=== PATIENT | male | born 1950 | race Caucasian/White ===

== ENCOUNTER 2017-03-11 03:10 | Emergency (ER) | payer MEDICARE, OTHER ==
[~2017-03-11] VITALS: Ht 185.4 cm; Wt 81.7 kg
[~2017-03-11 03:10] MED LIST: ASPI325 PO; BENTYL20 MG PO; CARV6.25 PO; CELEXA 40 MG PO; CITA20 PO; ENTRESTO 24 MG1 EACH PO; FURO20 PO; HYOS.125 SL; LEVFLO500 PO; LISI5 PO; Lasix40 MG PO; NYST100P TOP; Norco 10-325 T1 EACH PO; PROM25 PO; Percocet 5-3251 EACH PO; RXPROM25 PO; SPIR50 PO; SULTRIDS PO; WARF2.5 PO; Zofran Odt4 MG SL; Zofran4 MG PO
[2017-03-11] MEDS ORDERED: Lisinopril2.5 MG (04:30)
== END 2017-03-11 05:12 | disposition short-term general hospital (02) ==
LOC: ER 03:10
DX: N20.1 Calculus of ureter (principal); Z79.899 Other long term (current) drug therapy; Z79.01 Long term (current) use of anticoagulants; I48.91 Unspecified atrial fibrillation
CPT/HCPCS: 36415; 74176; 96374; 96375; 99285; J1885; J2405

== ENCOUNTER 2019-10-16 10:10 | Observation (INO) | payer MEDICARE, OTHER ==
[~2019-10-16] VITALS: Ht 185.4 cm; Wt 82.0 kg
[~2019-10-16 10:10] MED LIST changes: +HYDR1TAB94 PO; +LISI5
[2019-10-16 10:52] LABS: BASOPHILS ABSOLUTE AUTO 0.07 K/mm3 (0.00-0.23); BASOPHILS PERCENT AUTO 1 % (0-2); EOSINOPHILS PERCENT AUTO 4 % (0-6); Hemoglobin 11.6 g/dL (13.5-17.5); IMMATURE GRAN ABSOLUTE AUTO 0.03 K/mm3 (0.00-0.10); IMMATURE GRAN PERCENT AUTO 0 % (0-1); LYMPHOCYTES ABSOLUTE AUTO 1.65 K/mm3 (0.84-5.20); LYMPHOCYTES PERCENT AUTO 19 % (21-46); MONOCYTES PERCENT AUTO 10 % (4-13); Mean Corpuscular HGB 28.9 pg (26.0-34.0); Mean Corpuscular HGB Conc 32.2 g/dL (31.5-36.5); Mean Corpuscular Volume 90 fL (80-100); Mean Platelet Volume 10.5 fL (9.1-12.4); NEUTROPHILS ABSOLUTE AUTO 5.71 K/mm3 (1.96-9.15); NEUTROPHILS PERCENT AUTO 66 % (41-73); Platelet Count 269 K/mm3 (150-400); RDW Coefficient Variation 14.1 % (11.7-14.2); RDW Standard Deviation 46.9 fL (35.1-46.3); Red Blood Cell Count 4.01 M/mm3 (4.30-5.90); White Blood Cell Count 8.66 K/mm3 (4.00-11.30)
[2019-10-16] MEDS ORDERED: Klor-Con 1010 MEQ PO (11:20)
[2019-10-16 11:23] LABS: International Normalized Ratio No Calc
[2019-10-16 11:24] LABS: Prothrombin Time Results >90.0 Sec (9.7-11.5)
[2019-10-16 12:08] LABS: Alanine Aminotransfer (ALT/SGP 26 U/L (12-78); Albumin, Blood 3.6 g/dL (3.4-5.0); Albumin/Globulin Ratio 0.9 (0.8-1.8); Alk Phos 99 U/L (50-136); Anion Gap 2 mmol/L (6-16); Aspartate Aminotrans (AST/SGOT 30 U/L (12-37); Bilirubin, Total 1.5 mg/dL (0.1-1.0); Blood Urea Nitrogen 18 mg/dL (8-24); Bun/Creatinine Ratio 17.3 (12.0-20.0); CO2, Blood 32 mmol/L (21-32); Chloride, Blood 107 mmol/L (98-108); Creatinine, Blood 1.04 mg/dL (0.60-1.20); Glomerular Filtration Rate >60 (60-); Glucose, Blood 99 mg/dL (70-99); Potassium, Blood 4.1 mmol/L (3.5-5.5); Sodium, Blood 141 mmol/L (136-145); Total Protein, Blood 7.6 g/dL (6.4-8.2)
--- NOTE | 2019-10-16 15:45 | NUR ---
PT ADMITTED. PT ADMITTED TO ROOM 329. PT ORIENTED TO ROOM. CALL LIGHT IN REACH. BEVERAGES PROVIDED.
[2019-10-16 16:19] LABS: Hematocrit 32.4 % (37.0-53.0); Hemoglobin 10.4 g/dL (13.5-17.5)
--- NOTE | 2019-10-16 17:35 | NUR ---
SHIFT SUMMARY NO CHANGES IN ASSESSMENT AT THIS TIME. VS REVIEWED. PT RESTING IN ROOM, EATING DINNER. STOOL SAMPLE NEEDED FOR OCCULT TEST. PT AWARE. PT USING URINAL AT BEDSIDE. DENIES ANY NEEDS AT THIS TIME. WILL CONTINUE TO MONITOR.
[2019-10-16 17:59] LABS: Hematocrit 32.5 % (37.0-53.0); Hemoglobin 10.4 g/dL (13.5-17.5)
[2019-10-16 18:13] LABS: International Normalized Ratio 1.67
[2019-10-16 18:18] LABS: Prothrombin Time Results 17.4 Sec (9.7-11.5)
[2019-10-16 22:49] LABS: Hematocrit 30.3 % (37.0-53.0); Hemoglobin 9.8 g/dL (13.5-17.5)
--- NOTE | 2019-10-17 04:23 | NUR ---
SHIFT SUMMARY ADMITTED FOR SUPRATHERAPEUTIC INR. FULL CODE. PT IS ON WARFARIN AT HOME. UNABLE TO OBTAIN STOOL SAMPLE. INR AND PT LABS ARE IMPROVING. HOWEVER [facility] LAB[facility] ARE DOWNTRENDING, AWAITING MORNING LABS. HOPEFUL FOR DC TODAY. NO OTHER CONCERNS THIS SHIFT.
[2019-10-17 05:31] LABS: Hematocrit 31.6 % (37.0-53.0); Hemoglobin 10.2 g/dL (13.5-17.5); Mean Corpuscular HGB 29.1 pg (26.0-34.0); Mean Corpuscular HGB Conc 32.3 g/dL (31.5-36.5); Mean Corpuscular Volume 90 fL (80-100); Mean Platelet Volume 10.4 fL (9.1-12.4); Platelet Count 234 K/mm3 (150-400); RDW Standard Deviation 46.3 fL (35.1-46.3); Red Blood Cell Count 3.51 M/mm3 (4.30-5.90); White Blood Cell Count 6.87 K/mm3 (4.00-11.30)
[2019-10-17 06:15] LABS: International Normalized Ratio 1.29
[2019-10-17 06:24] LABS: Prothrombin Time Results 13.6 Sec (9.7-11.5)
--- NOTE | 2019-10-17 14:43 | NUR ---
CALLED [facility] REGARDING DC PLAN FOR PT. PT IS ABLE TO AMBULATE WITH SBA AND IS TO CONTINUE COUMADIN THERAPY AND FOLLOW UP WITH PRIMARY AFTER 1 WEEK. PT HAS HOTEL SERVER CAREGIVER.
--- NOTE | 2019-10-17 17:45 | NUR ---
SHIFT SUMMARY PT A&OX4. IV SALINE LOCKED. PT WAS TO D/C TO HOME TODAY WITH GROCERY SPECIALIST CAREGIVER HOWEVER PROVIDER CONCERNED REGARDING DROP IN HGB. PT IS TO BE NPO AFTER MIDNIGHT FOR GI CONSULT TOMORROW. PROTONIX WAS STARTED AT 1630. STOOL SAMPLE WAS COLECTED. COUMADIN STILL DISCONTINUED. PT WORKED WITH PT TODAY AND TOLERATED AMBULATION WELL. PT STATES HE IS NOT EXPIENCING ANY DIZZINESS OR SOB. PT CALLS APPROPRIATELY.
--- NOTE | 2019-10-17 19:29 | NUR ---
REQUESTED OXYGEN DURING LAB DRAW. PLACED ON O2 AT 3 L/NC. O2 SATS AT 92% AT THIS TIME. CALL LIGHT IN REACH. LAYING IN BED. OTHERWISE NO NOTED DIATRESS. RT NOTIFIED.
--- NOTE | 2019-10-18 03:36 | NUR ---
SHIFT SUMMARY HAS BEEN RESTING QUIETLY WITH FEW INTERRUPTIONS THIS SHIFT. CALL LIGHT IN REACH.
--- NOTE | 2019-10-18 04:19 | NUR ---
NURSE ATTEMPTED TO CALL GI CONSULT IN TO DR CARMENZA WANG, BUT "CLARICE" AT THE [facility] SAID THERE WAS NO ONE CALENDER LET OFF HELPER TODAY AND TO CALL BACK TOMORROW FOR DR CARMENZA WANG CONSULTATION. WILL PASS THIS ON TO AM.
[2019-10-18 05:45] LABS: BASOPHILS ABSOLUTE AUTO 0.08 K/mm3 (0.00-0.23); BASOPHILS PERCENT AUTO 1 % (0-2); EOSINOPHILS ABSOLUTE AUTO 0.43 K/mm3 (0.00-0.68); EOSINOPHILS PERCENT AUTO 6 % (0-6); Hematocrit 32.7 % (37.0-53.0); Hemoglobin 10.6 g/dL (13.5-17.5); IMMATURE GRAN ABSOLUTE AUTO 0.03 K/mm3 (0.00-0.10); IMMATURE GRAN PERCENT AUTO 0 % (0-1); LYMPHOCYTES ABSOLUTE AUTO 1.48 K/mm3 (0.84-5.20); LYMPHOCYTES PERCENT AUTO 20 % (21-46); MONOCYTES ABSOLUTE AUTO 1.04 K/mm3 (0.16-1.47); MONOCYTES PERCENT AUTO 14 % (4-13); Mean Corpuscular HGB 29.2 pg (26.0-34.0); Mean Corpuscular HGB Conc 32.4 g/dL (31.5-36.5); Mean Corpuscular Volume 90 fL (80-100); Mean Platelet Volume 10.6 fL (9.1-12.4); NEUTROPHILS ABSOLUTE AUTO 4.24 K/mm3 (1.96-9.15); NEUTROPHILS PERCENT AUTO 58 % (41-73); Platelet Count 242 K/mm3 (150-400); RDW Coefficient Variation 14.1 % (11.7-14.2); RDW Standard Deviation 45.7 fL (35.1-46.3); Red Blood Cell Count 3.63 M/mm3 (4.30-5.90)
[2019-10-18 05:58] LABS: International Normalized Ratio 1.26; Prothrombin Time Results 13.3 Sec (9.7-11.5)
[2019-10-18 06:33] LABS: Alanine Aminotransfer (ALT/SGP 32 U/L (12-78); Albumin, Blood 3.2 g/dL (3.4-5.0); Albumin/Globulin Ratio 0.9 (0.8-1.8); Alk Phos 91 U/L (50-136); Anion Gap 6 mmol/L (6-16); Aspartate Aminotrans (AST/SGOT 25 U/L (12-37); Bilirubin, Total 1.2 mg/dL (0.1-1.0); Blood Urea Nitrogen 15 mg/dL (8-24); Bun/Creatinine Ratio 15.1 (12.0-20.0); CO2, Blood 25 mmol/L (21-32); Calcium, Blood 8.8 mg/dL (8.5-10.1); Chloride, Blood 110 mmol/L (98-108); Globulin, Blood 3.7 g/dL (2.2-4.0); Glomerular Filtration Rate >60 (60-); Glucose, Blood 105 mg/dL (70-99); Potassium, Blood 3.9 mmol/L (3.5-5.5); Sodium, Blood 141 mmol/L (136-145); Total Protein, Blood 6.9 g/dL (6.4-8.2)
[2019-10-18 14:12] LABS: Stool Occult Blood Guaiac 1 Pos (Neg)
--- NOTE | 2019-10-18 16:50 | NUR ---
ATTEMPT TO PAGE THIS AM -[phone] X 2 WITH NO RESULTS. CALLED [facility] AT [phone] AND LEFT MESSAGE WITH OFFICE STAFF ABOUT CONSULT. CALLED BACK OFFICE AT THIS TIME TO MAKE SURE MD GOT MESSAGE AND PER OFFICE STAFF MD IS IN OFFICE AND WILL SEE PATIENT AFTER OFFICE HOURS.
--- NOTE | 2019-10-18 17:20 | NUR ---
ALERT. ORIENTED. PLEASANT.COOPERATIVE. IN ROOM AT THIS TIME. DENIES ANY PAIN OR DISCOMFORT. PER NO NEED FOR SCOPE. IV PATENT. ONE PERSON STANDBY ASSIST. UNLABORED RESPIRATIONS. POSSIBLE D'C TOMORROW. WCTM
--- NOTE | 2019-10-18 20:04 | NUR ---
ALERT AND ORIENTED. SMILING. TAKEN TO CT FOR SCAN OF ABD. NO C/O VOICED.
--- NOTE | 2019-10-18 21:36 | NUR ---
RETURNED EARLIER FROM RADIOLOGY FOR CT OF ABD. NO COMPLAINTS VOICED. RESTING QUIETLY. CALL LIGHT IN REACH
[2019-10-19 05:11] LABS: BASOPHILS ABSOLUTE AUTO 0.07 K/mm3 (0.00-0.23); BASOPHILS PERCENT AUTO 1 % (0-2); EOSINOPHILS ABSOLUTE AUTO 0.45 K/mm3 (0.00-0.68); EOSINOPHILS PERCENT AUTO 6 % (0-6); Hematocrit 32.4 % (37.0-53.0); Hemoglobin 10.7 g/dL (13.5-17.5); IMMATURE GRAN ABSOLUTE AUTO 0.04 K/mm3 (0.00-0.10); IMMATURE GRAN PERCENT AUTO 1 % (0-1); LYMPHOCYTES ABSOLUTE AUTO 1.22 K/mm3 (0.84-5.20); LYMPHOCYTES PERCENT AUTO 15 % (21-46); MONOCYTES ABSOLUTE AUTO 0.98 K/mm3 (0.16-1.47); MONOCYTES PERCENT AUTO 12 % (4-13); Mean Corpuscular HGB 29.5 pg (26.0-34.0); Mean Corpuscular Volume 89 fL (80-100); Mean Platelet Volume 10.5 fL (9.1-12.4); NEUTROPHILS ABSOLUTE AUTO 5.39 K/mm3 (1.96-9.15); NEUTROPHILS PERCENT AUTO 66 % (41-73); Platelet Count 250 K/mm3 (150-400); RDW Coefficient Variation 14.1 % (11.7-14.2); RDW Standard Deviation 45.7 fL (35.1-46.3); Red Blood Cell Count 3.63 M/mm3 (4.30-5.90); White Blood Cell Count 8.15 K/mm3 (4.00-11.30)
--- NOTE | 2019-10-19 05:34 | NUR ---
SHIFT SUMMARY HAS BEEN RESTING QUIETLY WITH FEW INTERRUPTIONS THIS SHIFT. HAD CT OF ABDOMEN LAST EVENING, NO NOTED RESULTS OF THIS WRITING. PT ASYMPTOMATIC. DENIED PAIN AND DISTRESS WHEN ASKED DURING ROUNDS. CALL LIGHT IN REACH
[2019-10-19] MEDS ORDERED: PANT20 PO (08:05)
[2019-10-19] MEDS ORDERED: ASPI81CH PO (11:56)
--- NOTE | 2019-10-19 14:51 | NUR ---
PT DISCHARGED AT 1420 WITH ALL PERSONAL BELINGINGS. PT AOX3 AND COOPERATIVE OF CARE. PT ABLE TO AMBULATE A STAND BY ASSIST WELL. PT DENIED ANY PAIN AND COULD CALL APPROPRIATELY. ALL PAPERWORK WAS REVIEWED AND EDUCATIONAL MATERIAL SENT. CALLED PT'S CAREGIVER TO LET HER KNOW PT WOULD BE HEADED HOME TRANSPORTED BY [employer] [facility]. PT ESCORTED VIA WHEEL CHAIR TO N ENTRANCE.
== END 2019-10-19 14:18 | disposition home or self-care (01) ==
LOC: ER 10:10 → MEDS 10:11
PROVIDERS: Emergency Medicine; Family Medicine; Nurse Practitioner Acute Care; ADMIT Internal Medicine
DX: D64.9 Anemia, unspecified (principal); I48.91 Unspecified atrial fibrillation; I10 Essential (primary) hypertension; R19.5 Other fecal abnormalities; K44.9 Diaphragmatic hernia without obstruction or gangrene; F32.9 Major depressive disorder, single episode, unspecified; Z79.01 Long term (current) use of anticoagulants; Z79.82 Long term (current) use of aspirin; Z79.899 Other long term (current) drug therapy; R58 Hemorrhage, not elsewhere classified
CPT/HCPCS: 36415; 36430; 74176; 80053; 82272; 85014; 85018; 85025; 85027; 85610; 86850; 86900; 86901; 96365; 96375; 96376; 97116; 97161; 97165; 97535; 99284-25; C9113; G0378; J3430; P9059

== ENCOUNTER 2020-01-02 07:32 | Day surgery (SDC) | payer MEDICARE, OTHER ==
[~2020-01-02] VITALS: Ht 185.4 cm; Wt 79.1 kg
[~2020-01-02 07:32] MED LIST changes: +ASPI81CH PO; +Klor-Con 1010 MEQ PO; +PANT20 PO
--- NOTE | 2020-01-02 08:30 | NUR ---
History, Chart, Medications and Allergies reviewed before start of procedure. Patient confirms NPO status and agrees with scheduled surgery. Patient States Post-Procedure ride home has been arranged with his friend, Eloisa Blackman.
--- NOTE | 2020-01-02 09:01 | NUR ---
01/02/20 0901 Marianna Multani History, Chart, Medications and Allergies reviewed before start of procedure.MONITOR INTACT WITH CONTINUOUS PULSE OXIMETRY AND INTERMITTENT BP.3-LEAD EKG REVIEWED WITH PHYSICIAN PRIOR TO START OF PROCEDURE.O2 VIA N/C INTACT THROUGHOUT SEDATION/PROCEDURE. PATIENT DETERMINED TO BE ASA APPROPRIATE FOR PROPOFOL SEDATION PRIOR TO START OF PROCEDURE BY . DISCUSSED HX OF AOTRIC STENOSIS WITH
== END 2020-01-02 23:27 | disposition home or self-care (01) ==
LOC: ORD 07:32 → ORSCMMR 07:32 → ORD 08:30
PROVIDERS: Internal Medicine Gastroenterology
PROC: 0DBN8ZX Excision of Sigmoid Colon, Via Natural or Artificial Opening Endoscopic, Diagnostic (ICD-10-PCS; principal; 2020-01-02 08:30)
PROC: 0DB68ZX Excision of Stomach, Via Natural or Artificial Opening Endoscopic, Diagnostic (ICD-10-PCS; principal; 2020-01-02 08:30)
PROC: 0DB98ZX Excision of Duodenum, Via Natural or Artificial Opening Endoscopic, Diagnostic (ICD-10-PCS; principal; 2020-01-02 08:30)
DX: D62 Acute posthemorrhagic anemia (principal); K29.70 Gastritis, unspecified, without bleeding; K63.5 Polyp of colon; K44.9 Diaphragmatic hernia without obstruction or gangrene; K64.8 Other hemorrhoids; K64.4 Residual hemorrhoidal skin tags; I48.91 Unspecified atrial fibrillation; Z79.01 Long term (current) use of anticoagulants; Z79.82 Long term (current) use of aspirin; Z79.899 Other long term (current) drug therapy
CPT/HCPCS: 88305; 88342; J2704; J7120